=== PATIENT | female | born 1985 | race Caucasian/White ===

== ENCOUNTER → 2021-01-26 12:43 | Outpatient (CLI) | payer OTHER, SELFPAY ==
--- NOTE | 2021-01-26 12:47 | DI.US.S_ITS ---
PROCEDURE: US OB <= 14 WEEKS FETUS INDICATIONS: RULE OUT ECTOPIC. INITIAL DATING. OUTSIDE/PRIOR DATING DATA: Last menstrual period (LMP): 11/27/2020. LMP-based estimated date of delivery (MAIKOL): 09/03/2021 First dating scan (date and location): 01/26/2021 Estimated date of delivery (MAIKOL) from first dating scan: 09/08/2021. TECHNIQUE: Real-time scanning was performed of the fetus and maternal pelvic organs, with image documentation. Endovaginal scanning was also performed to better visualize the fetus and maternal ovaries. COMPARISON: None. FINDINGS: Embryo: Single intrauterine gestation is seen with fetus and yolk sac noted. Arapaho-rump length measures 1.5 cm. Estimated gestational age is 7 weeks, 6 days. Heart rate: 163 beats per minute. No perigestational hemorrhage is seen. Maternal organs: Left ovary is visualized and is within normal limits. There is suggestion of a 2.4 x 1.8 cm corpus luteal cyst seen in right ovary. IMPRESSION: 1. Single live intrauterine with fetus and yolk sac seen. heart rate is 163 beats per minute. Estimated gestational age is 7 weeks, 6 days. 2. Possible corpus luteal cyst in right ovary as above. Dictated by: Jac Fletcher M.D. on 01/26/2021 at 17:06 Approved by: Jac Fletcher M.D. on 01/26/2021 at 17:08
== END ==
PROVIDERS: PCP Physician Assistant; Referring Provider Obstetrics & Gynecology; Visit Provider Obstetrics & Gynecology
DX: Z34.81 Encounter for supervision of other normal pregnancy, first trimester (principal); Z3A.01 Less than 8 weeks gestation of pregnancy
CPT/HCPCS: 76801; 76817

== ENCOUNTER → 2021-01-29 17:19 | Outpatient (CLI) | payer OTHER, SELFPAY ==
[2021-01-29 19:52] LABS: Urine N gonorrhoeae NOT DETECTED
[2021-01-29 20:10] LABS: Urine Chlamydia NOT DETECTED
== END ==
PROVIDERS: PCP Physician Assistant; Referring Provider Obstetrics & Gynecology; Visit Provider Obstetrics & Gynecology
DX: Z34.81 Encounter for supervision of other normal pregnancy, first trimester (principal); Z11.3 Encounter for screening for infections with a predominantly sexual mode of transmission; Z3A.08 8 weeks gestation of pregnancy
CPT/HCPCS: 87491; 87591

== ENCOUNTER → 2021-03-03 16:02 | Outpatient (CLI) | payer OTHER, SELFPAY ==
[2021-03-03 16:30] LABS: Add Manual Diff / Slide Review NO; Basophils Absolute Auto 100 /uL (0-100); Basophils Percent Auto 0.7 % (0-2); Eosinophils Absolute Auto 100 /uL (0-450); Eosinophils Percent Auto 0.7 % (2-4); Hematocrit 33.9 % (36-46); Hemoglobin 11.5 g/dL (12.0-16.0); Lymphocytes Absolute Auto 1900 /uL (1100-4500); Lymphocytes Percent Auto 26.3 % (25-40); Mean Corpuscular Hemoglobin 31.7 PG (26-34); Mean Corpuscular Volume 93.2 fL (80-100); Monocytes Absolute Auto 400 /uL (0-900); Monocytes Percent Auto 5.9 % (3-14); Neutrophils Absolute Auto 4700 /uL (1500-7000); Neutrophils Percent Auto 66.4 % (50-75); Platelet Count 271 X10^3/uL (150-400); Red Blood Cell Count 3.64 X10^6/uL (4.0-5.2); Red Cell Distribution Width 12.6 % (11.6-14.8); White Blood Cell Count 7.1 X10^3/uL (4.5-11.0)
[2021-03-03 16:31] LABS: Appearance Urine UA CLEAR; Bilirubin Urine UA NEGATIVE (NEGATIVE); Color Urine UA YELLOW; Glucose Urine UA NEGATIVE (Negative); Ketones Urine UA TRACE (NEGATIVE); Leukocyte Esterase Urine UA NEGATIVE (NEGATIVE); Nitrite Urine UA NEGATIVE (Negative); Occult Blood Urine UA NEGATIVE (Negative); Protein Urine UA NEGATIVE (Negative); Urobilinogen Urine UA 0.2 E.U./dL (0.2)
[2021-03-03 16:47] LABS: pH Urine UA 6.5 (4.5-8.0)
[2021-03-03 18:15] LABS: Hepatitis B Surface Antigen NEGATIVE s/c (NEGATIVE); Rubella Antibody IgG 28.3 IU/mL (>15)
[2021-03-03 18:27] LABS: HIV 1 & 2 Ab/Ag 4th Gen Combo NEGATIVE (NEGATIVE); Hep C Virus Ab w/Reflex Quant NEGATIVE s/c (NEGATIVE)
[2021-03-04 08:05] LABS: RPR Screen Non Reactive (Non Reactive)
[2021-03-04 14:36] LABS: Varicella IgG Antibody 767 index (Immune >165)
== END ==
PROVIDERS: PCP Physician Assistant; Referring Provider Obstetrics & Gynecology; Visit Provider Obstetrics & Gynecology
DX: Z34.81 Encounter for supervision of other normal pregnancy, first trimester (principal); Z36.0 Encounter for antenatal screening for chromosomal anomalies; Z3A.01 Less than 8 weeks gestation of pregnancy
CPT/HCPCS: 36415; 80055; 81003; 81420; 86787; 86803; 86850; 86900; 86901; 87086; 87389

== ENCOUNTER → 2021-03-26 12:12 | Outpatient (CLI) | payer OTHER, SELFPAY ==
[2021-03-30 14:08] LABS: AFP Value 30.5 ng/mL (.); Gest Age on Col Date 16.3 weeks (.); Gestational Age EDD (.); Insulin Dep Diabetes No (.); OSBR Risk 1IN 10000 (.); Results Report (.); Test Results *Screen Negative* (.)
== END ==
PROVIDERS: PCP Physician Assistant; Referring Provider Obstetrics & Gynecology; Visit Provider Obstetrics & Gynecology
DX: Z34.82 Encounter for supervision of other normal pregnancy, second trimester (principal); Z36.0 Encounter for antenatal screening for chromosomal anomalies; Z3A.16 16 weeks gestation of pregnancy
CPT/HCPCS: 36415; 82105

== ENCOUNTER → 2021-04-22 10:38 | Outpatient (CLI) | payer OTHER, SELFPAY ==
--- NOTE | 2021-04-22 10:39 | DI.US.S_ITS ---
PROCEDURE: US OB >= 14 WEEKS FETUS INDICATIONS: ANATOMY OUTSIDE/PRIOR DATING DATA: Last menstrual period (LMP): 11/27/2020. LMP-based estimated date of delivery (MAIKOL): 09/03/2021. First dating scan (date and location): 01/26/2021. Estimated date of delivery (MAIKOL) from first dating scan: 09/08/2021. TECHNIQUE: Real-time scanning was performed of the fetus, with image documentation and biometric measurements. Endovaginal scanning: Present COMPARISON: [facility], OB <= 14 WEEKS FETUS, 01/26/2021, 13:08. FINDINGS: General: A single living intrauterine gestation is present. Presentation: Variable. Placenta: Placental position is anterior , without previa. Amniotic fluid index: 14.4 cm, normal range is 5-24 cm. heart rate: 152 beats per minute. Maternal cervical canal: 4.8 cm long. Normal lower limit is 2.5 cm. biometrics: Biparietal diameter: 4.6 cm 20 weeks 0 days Head circumference: 17.7 cm 20 weeks 1 day Abdominal circumference: 14.9 cm 20 weeks 1 day Femur length: 3.2 cm 19 weeks 6 days Ultrasound estimated gestational age: 20 weeks 1 day Composite gestational age from present scan: 20 weeks 0 days Estimated weight and percentile: 330 g, 41st percentile Anatomic survey: Neuro: Ventricles are non-dilated at less than 10 mm. Cisterna magna is normal at 3-11 mm. Cerebellum is normal in size and morphology. Nuchal skin fold: Normal at less than 6 mm between 14-21 weeks gestational age. Face: Nose and lips, facial profile are normal. Spine: No evidence for spina bifida. Heart: 4-chambered heart is present, with normal ventricular outflow tracts. Diaphragm: Diaphragm is intact. Stomach: Left-sided stomach is present. Kidneys: No hydronephrosis. Normal is less than 5 mm in 2nd trimester, less than 7 mm in 3rd trimester. Cord: 3-vessel cord has orthotopic insertion. Bladder: Normal in size. Extremities: All 4 extremities identified. IMPRESSION: 1. Single live intrauterine . 2. Anatomy is within normal limits. We strive to produce accurate, complete, and clear reports of imaging services. To assist us in improving patient care, this report was composed using standard report templates and voice recognition software. Therefore, it may contain abnormal punctuation, insertions and/or omissions. Occasional wrong-word or sound-alike substitutions may occur. Though we review the report and make efforts to correct it, we do recommend that the report be read carefully in proper context to recognize any text inaccuracies. Dictated by: Allison Schuler M.D. on 04/22/2021 at 17:27 Approved by: Allison Schuler M.D. on 04/22/2021 at 17:29
== END ==
PROVIDERS: PCP Physician Assistant; Referring Provider Obstetrics & Gynecology; Visit Provider Obstetrics & Gynecology
DX: Z34.82 Encounter for supervision of other normal pregnancy, second trimester (principal); Z3A.20 20 weeks gestation of pregnancy
CPT/HCPCS: 76811

== ENCOUNTER → 2021-06-11 11:29 | Outpatient (CLI) | payer OTHER, SELFPAY ==
[2021-06-11 12:45] LABS: Hematocrit 34.5 % (36-46); Hemoglobin 11.8 g/dL (12.0-16.0)
[2021-06-11 13:36] LABS: GTT (PREG) 1 Hour PP 50gm Dose 113 mg/dL (76-139)
== END ==
PROVIDERS: PCP Physician Assistant; Referring Provider Obstetrics & Gynecology; Visit Provider Obstetrics & Gynecology
DX: Z34.82 Encounter for supervision of other normal pregnancy, second trimester (principal); Z3A.26 26 weeks gestation of pregnancy
CPT/HCPCS: 36415; 82950; 85014; 85018

== ENCOUNTER 2021-07-30 10:28 | Outpatient (CLI) | payer OTHER, SELFPAY ==
--- NOTE | 2021-07-30 11:00 | P.TNLD_ITS ---
Visit Information Visit Information Date of evaluation: 07/30/21 Primary OB Provider: River Harvey On-call OB Provider: Nolvia Boone Reason for Evaluation: Yes non-stress test non-stress test reason: other (AMA) Vital Signs Vital Signs: Temperature 36.3 Blood pressure 120/89 BP 106/60 Pulse 84 PFSH Medical History Anxiety (~1994) Arm fracture, left (~1990) Depression (~2020) Irregular menses Ulcerative colitis (~2014) Surgical History H/O removal of cyst (~2013) History of removal of skin mole Family History Mother Hypothyroid Father Skin cancer of nose Grandmother Bilateral bunions Grandfather Colon cancer Grandmother Cancer Grandfather Lung cancer Social History marital status: number of children: 3 (2 older step kids stay with them over l[place]ardi. 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 ) alcohol intake: former (Pre-: a glass of wine a few times a week. ) substance use type: does not use during the past year weight has: remained stable well-balanced diet: daily or most days (Had been doing plant-based diet prior to , but now eating meat & more variety. Enc'd online nutrition class.) daily servings fruits/ve-4 caffeine: Yes (1 caffeinated drink a day or less. ) Type(s) of exercise: bicycling (Spinning. ) and other (maternity exercise program. ) frequency: daily duration: 45-60 minutes/day Evaluation Evaluation Baseline heart rate: 120 Variability: Moderate (11-25) monitor accelerations: Present Monitor Decelerations: Absent Category of Tracing: Reactive Diagnosis, Plan/Disposition Final Diagnosis (1) Advanced maternal age affecting , antepartum: Status: Acute (2) 34 weeks gestation of : Status: Acute Plan/Disposition Plan: 36-year-old at 34 weeks and 2 days gestation here for NST due to advanced maternal age. NST reactive. Follow-up in clinic as scheduled. OB Disposition: home
== END 2021-07-30 11:05 | disposition home or self-care (01) ==
LOC: LABOR 10:40 → OB 08-01 10:49
PROVIDERS: PCP Physician Assistant; Referring Provider Obstetrics & Gynecology; Visit Provider Obstetrics & Gynecology
DX: O09.523 Supervision of elderly multigravida, third trimester (principal); Z3A.34 34 weeks gestation of pregnancy
CPT/HCPCS: 59025; G0378; G0379

== ENCOUNTER 2021-08-06 11:22 | Outpatient (CLI) | payer OTHER, SELFPAY | END 2021-08-06 12:32 | disposition home or self-care (01) | LOC: LABOR 12:02 → OB 15:43 | PROVIDERS: PCP Physician Assistant; Referring Provider Obstetrics & Gynecology; Visit Provider Obstetrics & Gynecology | DX: O09.523 Supervision of elderly multigravida, third trimester (principal); Z3A.35 35 weeks gestation of pregnancy | CPT/HCPCS: 59025; G0378; G0379 ==

== ENCOUNTER 2021-08-13 14:48 | Outpatient (CLI) | payer OTHER, SELFPAY | END 2021-08-13 15:27 | disposition home or self-care (01) | LOC: OB 08-15 12:38 | PROVIDERS: PCP Physician Assistant; Referring Provider Obstetrics & Gynecology; Visit Provider Obstetrics & Gynecology | DX: O09.523 Supervision of elderly multigravida, third trimester (principal); O26.23 Pregnancy care for patient with recurrent pregnancy loss, third trimester; Z3A.36 36 weeks gestation of pregnancy | CPT/HCPCS: 59025; 87653; G0378; G0379 ==

== ENCOUNTER → 2021-08-13 16:03 | Outpatient (CLI) | payer OTHER, SELFPAY ==
[2021-08-14 13:40] LABS: Strep Grp B PCR NEG for Grp B Strep
== END ==
PROVIDERS: PCP Physician Assistant; Visit Provider Obstetrics & Gynecology
DX: Z36.85 Encounter for antenatal screening for Streptococcus B (principal); Z3A.36 36 weeks gestation of pregnancy
CPT/HCPCS: 87653

== ENCOUNTER 2021-08-20 12:31 | Outpatient (CLI) | payer OTHER, SELFPAY | END 2021-08-20 13:30 | disposition home or self-care (01) | LOC: LABOR 13:10 → OB 08-24 08:25 | PROVIDERS: PCP Physician Assistant; Referring Provider Obstetrics & Gynecology; Visit Provider Obstetrics & Gynecology | DX: O09.523 Supervision of elderly multigravida, third trimester (principal); Z3A.37 37 weeks gestation of pregnancy | CPT/HCPCS: 59025; G0378; G0379 ==

== ENCOUNTER 2021-08-27 12:24 | Outpatient (CLI) | payer OTHER, SELFPAY | END 2021-08-27 12:50 | disposition home or self-care (01) | LOC: LABOR 12:31 → OB 08-31 15:12 | PROVIDERS: PCP Physician Assistant; Referring Provider Obstetrics & Gynecology; Visit Provider Obstetrics & Gynecology | DX: O09.523 Supervision of elderly multigravida, third trimester (principal); Z3A.38 38 weeks gestation of pregnancy | CPT/HCPCS: 59025; G0378; G0379 ==

== ENCOUNTER 2021-09-02 05:57 | Inpatient (IN) | payer OTHER, SELFPAY ==
--- NOTE | 2021-09-02 | PATH_ITS ---
[facility] Accession Number: [id number] . 01 Material submitted: . fallopian tube - BILATERAL FALLOPIAN TUBES . 02 Diagnosis: Bilateral Fallopian Tubes, Bilateral Salpingectomies: Benign fimbriated fallopian tubes with simple benign paratubal cysts. No evidence of neoplasm. MRV 09/06/2021 1609 Local . 02 Electronically signed: . Bradly Gastelum MD, PhD, Pathologist NPI- [id number] . 01 Gross description: . The specimen is received in formalin, labeled bilateral fallopian tubes, and consists of two unoriented, fimbriated fallopian tubes measuring 10.7 x 0.7 cm and 10.8 x 0.5 cm. Sectioning reveals stellate lumens with unremarkable cut surfaces. The specimen is representatively submitted as follows: A1: System Software Developer section of fimbria and cross-sections of shorter fallopian tube. A2: System Software Developer section of fimbria and cross-sections of longer fallopian tube. ([id number]) /FRMarcial 09/04/2021 1935 Local . 02 Microscopic: . Complete cross sections of fallopian tube are seen from each tubular structure submitted. . 02 Pathologist provided ICD-10: Z30.2 . 02 CPT . 235208 Specimen Comment: A courtesy copy of this report has been sent to [phone] Performed at: 01 [facility] [address] [place] [address], [place], [place] [id number] MD Dar Short MD Phone: [phone] Performed at: 02 [facility] [address] [place], [place] [id number] MD Tanna Steele MD Phone: [phone]
[2021-09-02 06:22] VITALS: BP 116/76
[2021-09-02 06:31] LABS: Add Manual Diff / Slide Review NO; Basophils Absolute Auto 100 /uL (0-100); Basophils Percent Auto 0.7 % (0-2); Eosinophils Absolute Auto 100 /uL (0-450); Eosinophils Percent Auto 0.8 % (2-4); Hematocrit 34.9 % (36-46); Lymphocytes Absolute Auto 2000 /uL (1100-4500); Lymphocytes Percent Auto 24.8 % (25-40); Mean Corpuscular HGB Conc 34.5 % (30-36); Mean Corpuscular Hemoglobin 30.9 PG (26-34); Mean Corpuscular Volume 89.4 fL (80-100); Monocytes Absolute Auto 500 /uL (0-900); Monocytes Percent Auto 6.7 % (3-14); Neutrophils Absolute Auto 5500 /uL (1500-7000); Platelet Count 215 X10^3/uL (150-400); Red Cell Distribution Width 13.7 % (11.6-14.8); White Blood Cell Count 8.2 X10^3/uL (4.5-11.0)
[2021-09-02] MEDS: LACTATED RINGERS 1,000 ML 100 ML IV ×3 (06:39→10:05)
[2021-09-02 06:43] LABS: COVID19 -Nasal RAPID Negative (Negative)
--- NOTE | 2021-09-02 07:27 | PM.OBHP.1 ---
OB HPI Date/Time Date of admission: 09/02/21 Date Patient Seen: 09/02/21 Time Patient Seen: 07:29 History of Present Condition Chief complaint: C Section : 4 Para: 1 Estimated Date of Delivery: 09/08/21 Estimated Gestational Age (weeks): 39+1 Narrative: Aurelia Matta is a 36 year old MAIKOL 09/08/2021 admitted now at 39+ 1 weeks states for repeat section and bilateral salpingectomy. Aside from advanced maternal age, the patient's course has been unremarkable. GBS is negative. Indications Operative indications ( section): previous uterine surgery History of Present care: good care Dating criteria: LMP confirmed by 1st trimester US Obstetrical complications: none Medical complications: other (Advanced maternal age, cell free DNA negative for trisomies) Preadmission Labs Blood type: O (+) positive -: Antibody screen: negative, GBS status: negative, HBsAG: negative, HIV: negative and RPR/VDLR: negative -: Chlamydia screen: not detected and Gonorrhea screen: not detected -: Rubella: immune and Varicella: immune HCT: 34.9 HCAB: negative PAP: Normal Cell-free DNA: Negative 1 hr GTT: 113 Prior (ies) History: Primary section Evaluation Evaluation Baseline heart rate: 145 Variability: Moderate (11-25) monitor accelerations: Present Monitor Decelerations: Absent Status: Category l PFSH Medical History Anxiety (~1994) Arm fracture, left (~1990) Depression (~2020) Irregular menses Ulcerative colitis (~2014) Surgical History H/O removal of cyst (~2013) History of removal of skin mole Family History Mother Hypothyroid Father Skin cancer of nose Grandmother Bilateral bunions Grandfather Colon cancer Grandmother Cancer Grandfather Lung cancer Social History marital status: number of children: 3 (2 older step kids stay with them over [place]ardi. 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 ) alcohol intake: former (Pre-: a glass of wine a few times a week. ) substance use type: does not use during the past year weight has: remained stable well-balanced diet: daily or most days (Had been doing plant-based diet prior to , but now eating meat & more variety. Enc'd online nutrition class.) daily servings fruits/ve-4 caffeine: Yes (1 caffeinated drink a day or less. ) Type(s) of exercise: bicycling (Spinning. ) and other (maternity exercise program. ) frequency: daily duration: 45-60 minutes/day Meds Home Medications and Allergies Home Medications Medication Instructions Recorded Confirmed Type No Known Home Medications 07/09/21 History Allergies Allergy/AdvReac Type Severity Reaction Status Date / Time No Known Drug Allergies Allergy Verified 07/23/21 13:37 Review of Systems Review of Systems Narrative: Problem-specific ROS positives included in HPI OB Exam HENMT Head: normal to inspection Eyes General: appearance normal, both eyes and all related structures Resp Effort & Inspection: normal respiratory effort and able to speak in complete sentences Auscultation: clear to auscultation bilaterally Cardio Rate: regular rate Rhythm: regular rhythm Heart Sounds: S1 normal, S2 normal and no murmurs GI Inspection: normal to inspection Palpation: Yes soft, Yes no hepatosplenomegaly and No tender Uterus Location (Fundal Height): 38 Presentation: vertex Estimated Weight (lbs): 8 Objective Labs Result Diagrams: 09/02/21 06:15 Labs: Laboratory Results - last 24 hr 09/02/21 09/02/21 06:15 06:15 WBC 8.2 RBC 3.90 L Hgb 12.0 Hct 34.9 L MCV 89.4 MCH 30.9 MCHC 34.5 RDW 13.7 Plt Count 215 Neut % (Auto) 67.0 Lymph % (Auto) 24.8 L [place] % (Auto) 6.7 Eos % (Auto) 0.8 L Baso % (Auto) 0.7 Neut # (Auto) 5500 Lymph # (Auto) 2000 [place] # (Auto) 500 Eos # (Auto) 100 Baso # (Auto) 100 SARS-CoV-2 (PCR) Negative Assessment and Plan Assessment and Plan Assessment and Plan narrative: ASSESSMENT 1. Intrauterine gestation, Zheng, 39+ 1 weeks gestational age 2. Prior section, declines TOLAC 3. Advanced maternal age 4. Request for sterilization PLAN 1. Admit for repeat section and bilateral salpingectomy 2. Patient counseled regarding risks, benefits and potential complications associated with repeat section with bilateral salpingectomy. Patient also understands that bilateral salpingectomy is a permanent irreversible procedure procedure which will make it impossible for her to bear children without the benefit of assisted reproductive technology. With full understanding of the above, a written consent was executed, signed, and witnessed this date. 3. See admission orders
--- NOTE | 2021-09-02 07:34 | SUR.OPER ---
Supine on Padded OR bed, head on pillow, safety belt at thigh, arms secured on padded arm boards at <90 degrees abduction. Bump under right buttock. Legs uncrossed with pillow under knees, gel pad to heels, tape over blanket to lower legs.
--- NOTE | 2021-09-02 07:36 | PM.PREOP ---
Pre-operative Note COVID-19 COVID-19 status: Negative Result date/Date tested (Pos, Neg/Pending): 09/02/21 Criteria for continued procedure: Non-surgical alternatives not available or appropriate per current SOC Interval Note History & Physical reviewed/Exam performed by Physician: Yes Changes to H&P: No
[2021-09-02] MEDS: CEFAZOLIN 2 GM/20 ML SYRINGE IV (08:00)
--- NOTE | 2021-09-02 08:52 | SUR.OPER ---
Viable baby boy born at 0832. Placenta and cord blood tubes given to maternal-child nurse Danielle Shah.
[2021-09-02 09:22] VITALS: BP 111/69; PULSE 83; RESP 16; O2SAT 100
[2021-09-02 09:26] VITALS: BP 106/67; PULSE 93; RESP 14; O2SAT 97
--- NOTE | 2021-09-02 09:26 | PM.OBCS.1 ---
Operative Date/Time/Diagnoses Date of procedure: 09/02/21 Time of procedure: 08:00 Pre-op diagnosis: , uterine, siu, 39+1 weeks EGA Previous section Request for sterilization Post-op diagnosis: same Procedure & Clinicians Procedure: Rpeat section (Low transverse cervical) Bilateral salpingectomy Same procedure as scheduled: Yes Indications: Aurelia Matta is a 36 year old MAIKOL 09/08/2021 admitted now at 39+ 1 weeks states for repeat section and bilateral salpingectomy.? Aside from advanced maternal age, the patient's course has been unremarkable.? GBS is negative. Surgeon: River Harvey Manufacturing Operations Manager: Geovanna Dao Reason for Manufacturing Operations Manager: Retraction and for the timely, safe, and effective performance of this complex surgical procedure. Anesthesia Type: Spinal Operative Notes Findings: Viable male , Apgars 8/9, weight 3150 gms (6 lb 15.1 oz). Normal gravid anatomy. Closure Type: primary Specimen(s): cord blood Intraoperative meds administered: Ketorolac and Pitocin Applied: Catheter Estimated Blood Loss (mL): 600 Blood products transfused: none Procedure in detail: With the patient under satisfactory spinal block anesthesia in the dorsal supine position, the abdomen was prepped and draped in the usual fashion for section following insertion of a Jiang catheter.? A pre-surgical safety time-out was then taken in accordance with [facility] Main OR protocols.? A 15 cm transverse incision was then made along the line of her old scar and carried down to the deep fascia.? The deep fascia was incised transversely, the rectus abdomini bluntly, and the peritoneum was entered sharply.? A bladder flap was created with a transverse incision of the peritoneum overlying the lower uterine segment and the bladder advanced.? The lower uterine segment was then incised transversely and the amniotic cavity entered atraumatically.? Clear amniotic fluid was noted and the infant was delivered from vertex presentation with the assistance of a Errund OmniCup vacuum extractor.? No cord entanglement was noted at the time of delivery.? Delayed cord clamping was performed and once the umbilical cord was clamped and cut, cord blood sample was obtained for routine studies.? The placenta was then removed from the endometrial cavity with uterine massage and gentle traction on the umbilical cord.? The uterus was then exteriorized. The endometrial cavity was found to be empty with use of a sloppy wet lap followed by dry lap.? All redundant membranes were removed and the endocervical canal dilated with a ring forcep.? Ring forceps were used to secure both angles and the hysterotomy was closed 1st with #1 Chromic in a running interlocking stitch initiated both angles and tying separately near the midline.? A 2nd layer of #1 Chromic was used in a running interlocking imbricating stitch to over sew the 1st.? A left ascending uterine artery ligation was accomplished with a single stitch of #1 Chromic.? Hemostasis was excellent with no points of bleeding noted in the pelvis.? Attention was then turned to performance of bilateral salpingectomy. The distal right fallopian tube was grasped with a Danis clamp and elevated. The fimbria varicose of was then coagulated and divided with the LigaSure device and the LigaSure device was then used to coagulate and divide the mesosalpinx all the way over to the cornua at which point the base of the fallopian tube was then coagulated and divided with the LigaSure. Attention was then turned to the left adnexa with the left fallopian tube removed in exactly the same fashion. Hemostasis at the site of salpingectomy was complete. The uterus was then returned to the abdominal cavity. The bladder flap was then closed with 2-0 Vicryl and the anterior peritoneum was closed in a similar fashion.? The deep fascia was then closed with #1 Vicryl in a running stitch initiated at both angles inciting separately near the midline.? Subcutaneous tissues brought together was 2-0 Vicryl in a running stitch and skin edges were reapproximated with 4-0 Monocryl in a running imbricating stitch.? Mastisol was applied to the skin and Steri-Strips then applied.? An AquaCel dressing was then applied over the Steri-Strips and the procedure was terminated with the doing well and the mother having tolerated the procedure well. Complications: none [place] Baby 1: Gender: Male Presentation: vertex Position: Left Occiput Anterior Placental Delivery Description: Expressed Cord Vessel Description: 3 Vessels score (1 min): 8 score (5 min): 9 weight: 6 lb 15.113 oz Post-operative Condition: stable Disposition: PACU Aftercare: routine postop
[2021-09-02 09:31] VITALS: BP 107/69; PULSE 85; RESP 16; O2SAT 96
[2021-09-02] MEDS: LANOLIN OINT 7 GM 1 APPLIC TOP (14:15)
[2021-09-02 16:53] VITALS: TEMP 36.4
[2021-09-02] MEDS: ACETAMINOPHEN 325 MG TABLET 650 MG PO (16:53)
[2021-09-02] MEDS: IBUPROFEN 600 MG TABLET PO ×2 (16:53→21:55)
[2021-09-02 20:20] VITALS: TEMP 36.6
[2021-09-02] MEDS: OXYCODONE/ACETAMINOPHEN 5/325 TABLET 1 TAB PO (20:20)
[2021-09-03] MEDS: OXYCODONE/ACETAMINOPHEN 5/325 TABLET 1 TAB PO ×2 (02:11→08:29)
[2021-09-03] MEDS: IBUPROFEN 600 MG TABLET PO ×2 (03:43→12:39)
[2021-09-03 06:03] LABS: Add Manual Diff / Slide Review NO; Basophils Absolute Auto 0 /uL (0-100); Basophils Percent Auto 0.3 % (0-2); Eosinophils Absolute Auto 100 /uL (0-450); Hematocrit 31.3 % (36-46); Hemoglobin 10.6 g/dL (12.0-16.0); Lymphocytes Absolute Auto 1600 /uL (1100-4500); Lymphocytes Percent Auto 16.1 % (25-40); Mean Corpuscular HGB Conc 33.9 % (30-36); Mean Corpuscular Volume 91.4 fL (80-100); Monocytes Absolute Auto 700 /uL (0-900); Monocytes Percent Auto 6.7 % (3-14); Neutrophils Absolute Auto 7400 /uL (1500-7000); Neutrophils Percent Auto 75.9 % (50-75); Platelet Count 183 X10^3/uL (150-400); Red Blood Cell Count 3.42 X10^6/uL (4.0-5.2); Red Cell Distribution Width 13.8 % (11.6-14.8); White Blood Cell Count 9.8 X10^3/uL (4.5-11.0)
[2021-09-03 08:29] VITALS: TEMP 36.6
[2021-09-03] MEDS: DOCUSATE 100 MG CAPSULE 200 MG PO (08:29)
--- NOTE | 2021-09-03 11:03 | PM.OBDS.1 ---
Discharge Providers Provider Date of admission: 09/02/21 05:57 Discharge Date: 09/03/21 Primary care physician: Rufino Null PA-C Consults: 09/02/21 11:03 Consult to Railroad Operator Routine Comment: Discharge provider: River Harvey MD Summary Hospital Course Date Patient Seen: 09/03/21 Time Patient Seen: 10:45 Diagnoses: Intrauterine gestation, Zheng, 39+ 1 weeks gestational age, delivered via repeat section (low transverse cervical) Request for sterilization Prior section Hospital Course: On the morning of 09/02/2021 the patient underwent an uneventful repeat section with bilateral salpingectomy. Full details of the procedure well summarized on my operative note of that date. Following her procedure, the patient has done extremely well with prompt return of bowel and bladder function, she is ambulating independently, tolerating regular diet well, and her pain is well controlled with oral medications. First morning hemoglobin and hematocrit of 10.6 and 31.3 respectively are consistent with observed operative losses. Patient will be discharged at this time in an afebrile normotensive condition after counseling regarding precautionary symptoms, limitations of activity, medications, and plans for follow-up. Medications at discharge will include Percocet 1 p.o. q.4 hours as needed pain dispense 20 with no refills, and ibuprofen 600 mg p.o. Q 6 hours as needed pain, Colace 200 mg p.o. b.i.d. times 15 days. Follow-up will be in 1 week for dressing removal or as needed. Peripartum Data Infant Delivery Method: Section Laceration Description: None Episiotomy description: None complications: none 1: Gender: Male Disposition of : home Status at Discharge Cognitive/behavioral status at discharge: at baseline, oriented Functional status at discharge: independent ambulation Overall status at discharge: patient is progressing back to baseline Time Spent with Patient Time attestation: Total time spent providing and/or coordinating discharge services: Time spent: Less than 30 minutes Objective Labs Result Diagrams: 09/03/21 05:45 Labs: Laboratory Results - last 24 hr 09/03/21 05:45 WBC 9.8 RBC 3.42 L Hgb 10.6 L Hct 31.3 L MCV 91.4 MCH 31.0 MCHC 33.9 RDW 13.8 Plt Count 183 Neut % (Auto) 75.9 H Lymph % (Auto) 16.1 L [place] % (Auto) 6.7 Eos % (Auto) 1.0 L Baso % (Auto) 0.3 Neut # (Auto) 7400 H Lymph # (Auto) 1600 [place] # (Auto) 700 Eos # (Auto) 100 Baso # (Auto) 0 Exam Vital Signs (past 8 hours): - 09/03/21 08:29 Temperature 97.9 F Oxygen Delivery Method Room Air Const General: cooperative, healthy appearing and comfortable Nutritional Appearance: average body habitus Orientation: alert and oriented x3 HENMT Head: normal to inspection Ears: hearing grossly normal bilaterally Face and sinus: face symmetric Eyes General: appearance normal, both eyes and all related structures Conjunctivae: conjunctivae normal Sclera: sclerae normal EOM: EOM intact bilaterally Neck Neck: normal visual inspection Resp Effort & Inspection: normal respiratory effort and able to speak in complete sentences Auscultation: clear to auscultation bilaterally Cardio Rhythm: regular rhythm Heart Sounds: S1 normal, S2 normal and no murmurs GI Inspection: normal to inspection and incision (Dressing removed and replaced; incision intact, healing) Palpation: soft, no hepatosplenomegaly and mass (Fundus firm, minimally tender, U -5) General: other (Deferred) Extrem General: no calf tenderness Psych Appearance: grossly normal Mental Status: mental status grossly normal Speech and Movement: speech and movement normal Mood: congruent mood Affect: normal affect Attitude: cooperative Thought Process: normal Thought Content: normal Judgment: judgment good Discharge Plan Discharge Plan Patient Disposition: Home Provider Discharge Comment: Carefully review the written instructions you received at the time you were discharged from the hospital. Your follow-up appointment is scheduled for 1 week after your surgery and I look forward to seeing you then. If however you have any concerns, problems, or issues please feel free to contact me either through the office phone number at [phone] or via the patient portal message system. Discharge orders & Medications Prescriptions: New oxycodone-acetaminophen 5-325 mg Tablet 1 tab PO Q4HR PRN (Reason: Pain, Severe (7-10)) Qty: 20 0RF docusate sodium 100 mg Capsule 200 mg PO BID 10 Days Qty: 40 1RF ibuprofen 600 mg Tablet 600 mg PO Q6H PRN (Reason: Fever/Mild Pain (1-3)) Qty: 60 1RF Follow up/Referrals: River Harvey MD [Physician] - (Dressing removal: , September 09 @ 10:45am w/ Dr. Harvey 6 week appt: October 13 @ 2pm w/ Dr. Harvey) Discharge Health Status Multidrug resistant organism: No MDRO Diet/Activity/Treatments Diet: Diet as Tolerated Activity: As tolerated Other treatments: Tylenol up to 4000 mg daily may be used once you have stop taking the oxycodone/acetaminophen (Percocet) for pain. Skin/Wound/Dressing Care Report to your healthcare provider any signs of infection, such as:: chills, fever, increased pain, unusual drainage and unusual redness Dressing: Leave dressing in place until your follow-up appointment when it will be removed. Visit Report/Discharge Packet Instructions: DI for Stand Alone Forms: Discharge: Care Discharge Data Primary Care Provider: Rufino Null
[2021-09-03 12:39] VITALS: TEMP 36.6
[2021-09-03] MEDS: OXYCODONE IR 10 MG TABLET PO (12:39)
[2021-09-03 13:01] VITALS: BP 107/69; PULSE 85; RESP 16; TEMP 36.6
== END 2021-09-03 13:20 | disposition home or self-care (01) | DRG 785 ==
PROVIDERS: Admitting Provider Obstetrics & Gynecology; PCP Physician Assistant; Referring Provider Obstetrics & Gynecology; Visit Provider Obstetrics & Gynecology
PROC: 10D00Z1 Extraction of Products of Conception, Low, Open Approach (ICD-10-PCS; CPT 59514; principal; 2021-09-02 07:45)
DX: O34.211 Maternal care for low transverse scar from previous cesarean delivery (principal); N85.8 Other specified noninflammatory disorders of uterus; Z3A.39 39 weeks gestation of pregnancy; Z37.0 Single live birth; Z30.2 Encounter for sterilization
CPT/HCPCS: 36415; 58611; 59050; 59510; 59514; 85025; 86850; 86900; 86901; 87635; C9803; J0690; J1885; J2250; J2274; J2405; J2590; J3010